=== PATIENT | female | born 1985 | race African-American/Black ===

== ENCOUNTER 2016-05-29 01:41 | Emergency (ER) | payer BC ==
[2016-05-29 01:05] LABS: URINE SOURCE CLEAN CATCH
[2016-05-29 01:17] LABS: ALBUMIN SERUM 4.2 g/dL (3.5-5.0); ALKALINE PHOSPHATASE 69 U/L (32-92); ALT (SGPT) 16 U/L (10-40); AST (SGOT) 20 U/L (10-42); BILIRUBIN, DIRECT <0.1 mg/dL (0.0-0.2); BILIRUBIN,INDIRECT 0.4 mg/dL (0.0-0.9); BILIRUBIN,TOTAL 0.5 mg/dL (0.2-2.0); BLOOD UREA NITROGEN 11 mg/dL (9-23); BUN/CREATININE RATIO 13.75; CARBON DIOXIDE 22 mmol/L (22-31); CHLORIDE 105 mmol/L (100-111); CREATININE SERUM 0.8 mg/dL (0.6-1.4); GLOM FILT RATE Estimated 115.6 mL/min (>60); GLUCOSE FASTING 88 mg/dL (70-110); LIPASE 32 U/L (22-51); POTASSIUM 3.7 mmol/L (3.5-5.1); PROTEIN TOTAL SERUM 7.3 g/dL (6.0-8.3); SODIUM 136 mmol/L (135-145)
[2016-05-29 01:17] LABS: URINE APPEARANCE CLOUDY; URINE BILIRUBIN NEG (NEG); URINE BLOOD NEG (NEG); URINE COLOR YELLOW; URINE GLUCOSE NEG (NEG); URINE KETONE 1+ (NEG); URINE LEUKOCYTE ESTERASE 1+ (NEG); URINE NITRATE NEG (NEG); URINE PH 5.5 (5-8); URINE PROTEIN NEG (NEG); URINE SPECIFIC GRAVITY 1.021 (1.003-1.035)
[2016-05-29 01:21] LABS: BASOPHIL% 0.5 % (0-2.5); EOSINOPHIL# 0.3 X10e3 (0-0.7); EOSINOPHIL% 2.8 % (0.0-7.0); HEMATOCRIT 41.7 % (35.0-45.0); HEMOGLOBIN 13.8 gm/dL (12.0-16.0); LYMPHOCYTE# 2.7 X10e3 (1.0-3.5); LYMPHOCYTE% 28.2 % (17.0-45.0); MEAN CORPUSCULAR HEMOGLOBIN 28.4 PG (28-34); MEAN PLATELET VOLUME 13.9 FL (6.5-11.5); MONOCYTE# 0.9 X10e3 (0-1.0); MONOCYTE% 9.3 % (3.0-12.0); NEUTROPHIL# 5.6 X10e3 (1.5-7.1); NEUTROPHIL% 59.2 % (40-75); RED BLOOD COUNT 4.85 X10e (3.90-5.30); RED CELL DISTRIBUTION WIDTH 13.4 % (11.0-15.5); WHITE BLOOD COUNT 9.5 X10e3 (4.0-10.5)
[2016-05-29 01:22] LABS: DIFF IND YES; PLATELET COUNT 123 X10e3 (140-420)
[2016-05-29 01:23] LABS: CULTURE INDICATED? YES; URINE BACTERIA AUWI 2+ (NEGATIVE); URINE SQUAMOUS EPITHELIAL CELL MOD /[HPF]
[2016-05-29 01:29] LABS: ANISOCYTOSIS SL
[2016-05-29 01:31] LABS: DIFFERENTIAL COMMENT GIANT PLTS.; PLATELET ESTIMATE NORMAL (NORMAL)
[~2016-05-29 01:41] MED LIST: BACTRIM DS TABL1 TA1 PO; CIPRO PO; DEPO-PROVER150 MG/ML INJ; FLEXERIL10 M1 PO; MACROBID100 MG PO; NORCO 5/325 TAB1 TAB PO; ORUDIS75 M1 DOB; PHENERGAN25 MG PO; PRENATAL1 TA1 PO; PYRIDIUM PO; PYRIDIUM100 MG PO
== END 2016-05-29 01:45 | disposition home or self-care (01) ==
LOC: CED 01:41
PROVIDERS: Emergency Medicine
DX: N30.00 Acute cystitis without hematuria (principal); F17.200 Nicotine dependence, unspecified, uncomplicated
CPT/HCPCS: 36415; 80048; 80076; 81003; 83690; 84703; 85025; 87086; 96361; 96374; 96375; 99284; J2405